=== PATIENT | male | born 1965 | race Caucasian/White ===

== ENCOUNTER → 2018-02-09 16:42 | Outpatient (CLI) | payer MEDICARE ==
[2015-03-30 12:20] VITALS: BMI 25.4
[~2018-02-09 16:42] MED LIST: BAYER CHEWABLE81 MG PO; CARAFATE1 G/10 ML PO; CELEXA10 MG; CELEXA20 MG PO; CYCLOBENZAPRINE10 MG PO; HYDROCODON-ACE1 EAC9 PO; LISINOPRIL10 MG PO; MULTIPLE VITAMI1 TA1 PO; ZANAFLEX4 MG PO; ZYLOPRIM300 MG PO
== END | disposition home or self-care (01) ==
LOC: D.CT 16:30
DX: R22.2 Localized swelling, mass and lump, trunk (principal); R06.00 Dyspnea, unspecified

== ENCOUNTER 2018-02-10 13:27 | Inpatient (IN) | payer MEDICARE ==
[~2018-02-10] VITALS: Ht 175.3 cm; Wt 68.9 kg
[~2018-02-10 13:27] MED LIST changes: -ZANAFLEX4 MG PO; -ZYLOPRIM300 MG PO
[2018-02-10] MEDS ORDERED: ZYLOPRIM300 MG PO (15:09)
[2018-02-10] MEDS ORDERED: ZANAFLEX4 MG PO (15:13)
[2018-02-10 15:14] VITALS: BP 121/86; BMI 22.5
[2018-02-10 16:46] VITALS: BP 121/86
[2018-02-10 17:27] LABS: INR 0.97 (0.85-1.17); PROTIME 12.5 SECONDS (11.6-15.0)
[2018-02-10 23:12] VITALS: BP 124/74
[2018-02-11 04:44] VITALS: BP 126/85
[2018-02-11 04:51] LABS: BASOPHILS 0.5 % (0-2); EOSINOPHILS 1.7 % (0-7); HEMOGLOBIN 15.5 g/dL (13.5-17.5); IMMATURE GRANULOCYTES 0.6 % (0-5); MCHC 33.7 g/dL (31.0-37.0); MEAN PLATELET VOLUME 9.6 fL (7.4-10.4); MONOCYTES 9.6 % (2-11); NEUTROPHILS 73.6 % (40-80); RDW 13.9 % (11.5-14.5); WBC 8.8 10x3/uL (4.8-10.8)
[2018-02-11 04:58] LABS: PLATELET COUNT 236 10x3/uL (130-400)
[2018-02-11 05:15] LABS: ALBUMIN 2.8 g/dL (3.4-5.0); ALKALINE PHOSPHATASE 83 U/L (46-116); ALT (SGPT) 29 U/L (10-68); BILIRUBIN - TOTAL 0.28 mg/dL (0.2-1.3); CALC OSMOLALITY 272 mosm/kg (275-300); CALCIUM 8.6 mg/dL (8.5-10.1); CARBON DIOXIDE 28.4 mmol/L (21.0-32.0); CHLORIDE - SERUM 101 mmol/L (98-107); CREATININE - SERUM 0.9 mg/dL (0.6-1.3); GLUCOSE 112 mg/dL (74-106); POTASSIUM - SERUM 4.4 mmol/L (3.5-5.1); PROTEIN - SERUM 6.9 g/dL (6.4-8.2); SODIUM 136 mmol/L (136-145); UREA NITROGEN 12 mg/dL (7-18); eGFR NON AFRICAN AMERICAN > 90 mL/min (90-120)
[2018-02-11 09:01] VITALS: BP 130/95
[2018-02-11 09:41] VITALS: BP 129/89
[2018-02-11 10:36] VITALS: BMI 22.4
[2018-02-11 10:49] VITALS: BP 120/84
[2018-02-11 12:19] VITALS: BP 120/95
[2018-02-11 14:36] VITALS: Ht 175.3 cm; Wt 68.9 kg
[2018-02-11 22:28] VITALS: BP 122/89
[2018-02-12 04:59] VITALS: BP 124/93
[2018-02-12 07:03] VITALS: BP 133/97
[2018-02-12 15:11] LABS: HEPATITIS C ANTIBODY >11.0 (0.0-0.9)
[2018-02-12 20:27] VITALS: BP 127/89
[2018-02-13 01:03] VITALS: BP 134/84
[2018-02-13 04:59] VITALS: BP 115/86
[2018-02-13 09:41] VITALS: BP 120/85
[2018-02-13 20:05] VITALS: BP 112/81
[2018-02-14 05:04] VITALS: BP 136/82
[2018-02-14 08:02] VITALS: BP 112/82
[2018-02-14 13:03] VITALS: BP 128/91
[2018-02-14 15:58] VITALS: BP 99/66
[2018-02-14 20:26] VITALS: BP 126/90
[2018-02-15] VITALS (13 sets, daily range): BP systolic 93–142; BP diastolic 63–108
[2018-02-15 18:16] LABS: HEMATOCRIT 44.6 % (42.0-54.0); HEMOGLOBIN 14.7 g/dL (13.5-17.5)
[2018-02-16] VITALS (7 sets, daily range): BP systolic 93–125; BP diastolic 71–98
[2018-02-16 05:36] LABS: BASOPHILS 0.1 % (0-2); EOSINOPHILS 0 % (0-7); HEMATOCRIT 45.1 % (42.0-54.0); HEMOGLOBIN 14.7 g/dL (13.5-17.5); IMMATURE GRANULOCYTES 0.4 % (0-5); LYMPHOCYTES 6.6 % (15-50); MCH 30.6 pg (26.0-34.0); MCHC 32.6 g/dL (31.0-37.0); MEAN PLATELET VOLUME 9.8 fL (7.4-10.4); MONOCYTES 9.5 % (2-11); NEUTROPHILS 83.4 % (40-80); PLATELET COUNT 264 10x3/uL (130-400); RDW 14.5 % (11.5-14.5); WBC 14.9 10x3/uL (4.8-10.8)
[2018-02-16 06:22] LABS: ALBUMIN 2.8 g/dL (3.4-5.0); ALKALINE PHOSPHATASE 80 U/L (46-116); ALT (SGPT) 77 U/L (10-68); BILIRUBIN - TOTAL 0.27 mg/dL (0.2-1.3); CALC OSMOLALITY 283 mosm/kg (275-300); CALCIUM 8.6 mg/dL (8.5-10.1); CARBON DIOXIDE 28.7 mmol/L (21.0-32.0); CHLORIDE - SERUM 102 mmol/L (98-107); CREATININE - SERUM 0.8 mg/dL (0.6-1.3); GLUCOSE 140 mg/dL (74-106); POTASSIUM - SERUM 4.6 mmol/L (3.5-5.1); SODIUM 139 mmol/L (136-145); UREA NITROGEN 24 mg/dL (7-18); eGFR NON AFRICAN AMERICAN > 90 mL/min (90-120)
[2018-02-17 05:37] LABS: BASOPHILS 0 % (0-2); EOSINOPHILS 0 % (0-7); HEMATOCRIT 42.9 % (42.0-54.0); HEMOGLOBIN 14.1 g/dL (13.5-17.5); IMMATURE GRANULOCYTES 0.2 % (0-5); LYMPHOCYTES 5.2 % (15-50); MCH 30.5 pg (26.0-34.0); MCHC 32.9 g/dL (31.0-37.0); MCV 92.7 fL (80.0-100.0); MEAN PLATELET VOLUME 9.9 fL (7.4-10.4); MONOCYTES 6.5 % (2-11); NEUTROPHILS 88.1 % (40-80); PLATELET COUNT 233 10x3/uL (130-400); RBC 4.63 10x6/uL (4.20-6.10); RDW 14.1 % (11.5-14.5); WBC 12.9 10x3/uL (4.8-10.8)
[2018-02-17 05:41] VITALS: BP 125/90
[2018-02-17 06:01] LABS: ALBUMIN 2.8 g/dL (3.4-5.0); ALKALINE PHOSPHATASE 77 U/L (46-116); ALT (SGPT) 59 U/L (10-68); BILIRUBIN - TOTAL 0.36 mg/dL (0.2-1.3); CALC OSMOLALITY 277 mosm/kg (275-300); CALCIUM 8.4 mg/dL (8.5-10.1); CARBON DIOXIDE 28.3 mmol/L (21.0-32.0); CHLORIDE - SERUM 98 mmol/L (98-107); GLUCOSE 139 mg/dL (74-106); PROTEIN - SERUM 6.8 g/dL (6.4-8.2); SODIUM 135 mmol/L (136-145); UREA NITROGEN 29 mg/dL (7-18); eGFR NON AFRICAN AMERICAN 83 mL/min (90-120)
[2018-02-17 09:20] VITALS: BP 170/70
[2018-02-17 11:07] VITALS: BP 122/83
[2018-02-17 11:19] VITALS: BP 157/102
[2018-02-17 20:00] VITALS: BP 117/78
[2018-02-18] VITALS: BP 127/84
[2018-02-18 04:00] VITALS: BP 130/81
[2018-02-18 05:58] LABS: CHLORIDE - SERUM 98 mmol/L (98-107); POTASSIUM - SERUM 4.6 mmol/L (3.5-5.1); SODIUM 132 mmol/L (136-145)
[2018-02-18 06:21] LABS: BASOPHILS 0 % (0-2); EOSINOPHILS 0 % (0-7); HEMATOCRIT 42.1 % (42.0-54.0); HEMOGLOBIN 14.1 g/dL (13.5-17.5); IMMATURE GRANULOCYTES 0.1 % (0-5); LYMPHOCYTES 4.8 % (15-50); MCH 30.7 pg (26.0-34.0); MCHC 33.5 g/dL (31.0-37.0); MCV 91.5 fL (80.0-100.0); MEAN PLATELET VOLUME 9.7 fL (7.4-10.4); MONOCYTES 4.9 % (2-11); NEUTROPHILS 90.2 % (40-80); PLATELET COUNT 212 10x3/uL (130-400); WBC 10.9 10x3/uL (4.8-10.8)
[2018-02-18 06:30] LABS: ALBUMIN 2.9 g/dL (3.4-5.0); ALKALINE PHOSPHATASE 66 U/L (46-116); ALT (SGPT) 47 U/L (10-68); BILIRUBIN - TOTAL 0.36 mg/dL (0.2-1.3); CALC OSMOLALITY 272 mosm/kg (275-300); CALCIUM 8.4 mg/dL (8.5-10.1); CREATININE - SERUM 0.9 mg/dL (0.6-1.3); GLUCOSE 120 mg/dL (74-106); PROTEIN - SERUM 6.6 g/dL (6.4-8.2); UREA NITROGEN 32 mg/dL (7-18); eGFR NON AFRICAN AMERICAN > 90 mL/min (90-120)
[2018-02-18 08:02] VITALS: BP 145/109
[2018-02-18 11:46] VITALS: BP 128/85
== END 2018-02-18 20:59 | disposition home or self-care (01) | DRG 844 ==
LOC: D.MS 13:27 → D.SDCHOLD 13:27 → D.MS 14:15 → D.SDCHOLD 02-15 11:49 → D.MS 02-15 11:51
PROVIDERS: Family Medicine; Internal Medicine Hematology & Oncology; Radiology Diagnostic Radiology
PROC: 0BBC3ZX Excision of Right Upper Lung Lobe, Percutaneous Approach, Diagnostic (ICD-10-PCS; principal; 2018-02-11 08:00)
PROC: 05HB33Z Insertion of Infusion Device into Right Basilic Vein, Percutaneous Approach (ICD-10-PCS; 2018-02-12)
PROC: B54MZZA Ultrasonography of Right Upper Extremity Veins, Guidance (ICD-10-PCS; 2018-02-12)
PROC: 0JH63XZ Insertion of Tunneled Vascular Access Device into Chest Subcutaneous Tissue and Fascia, Percutaneous Approach (ICD-10-PCS; 2018-02-14)
PROC: 02HV33Z Insertion of Infusion Device into Superior Vena Cava, Percutaneous Approach (ICD-10-PCS; 2018-02-14)
PROC: B5181ZA Fluoroscopy of Superior Vena Cava using Low Osmolar Contrast, Guidance (ICD-10-PCS; 2018-02-14)
PROC: 3E04305 Introduction of Other Antineoplastic into Central Vein, Percutaneous Approach (ICD-10-PCS; 2018-02-14)
DX: C7A.8 Other malignant neuroendocrine tumors (principal); I87.1 Compression of vein; R91.8 Other nonspecific abnormal finding of lung field; K75.9 Inflammatory liver disease, unspecified; I10 Essential (primary) hypertension; F17.200 Nicotine dependence, unspecified, uncomplicated

== ENCOUNTER → 2018-03-08 11:50 | Outpatient (CLI) | payer MEDICARE ==
[2018-02-11 14:36] VITALS: BMI 22.4
[~2018-03-08 11:50] MED LIST changes: +ZANAFLEX4 MG PO; +ZYLOPRIM300 MG PO
[2018-03-08 12:18] LABS: ALBUMIN 3.2 g/dL (3.4-5.0); ALKALINE PHOSPHATASE 152 U/L (46-116); ALT (SGPT) 21 U/L (10-68); BILIRUBIN - TOTAL 0.21 mg/dL (0.2-1.3); CALC OSMOLALITY 284 mosm/kg (275-300); CALCIUM 8.8 mg/dL (8.5-10.1); CARBON DIOXIDE 29.5 mmol/L (21.0-32.0); CHLORIDE - SERUM 100 mmol/L (98-107); CREATININE - SERUM 0.8 mg/dL (0.6-1.3); GLUCOSE 257 mg/dL (74-106); POTASSIUM - SERUM 4.2 mmol/L (3.5-5.1); PROTEIN - SERUM 6.7 g/dL (6.4-8.2); SODIUM 137 mmol/L (136-145); UREA NITROGEN 19 mg/dL (7-18); eGFR NON AFRICAN AMERICAN > 90 mL/min (90-120)
== END | disposition home or self-care (01) ==
LOC: D.LABREF 11:50
PROVIDERS: Internal Medicine Hematology & Oncology
DX: R91.8 Other nonspecific abnormal finding of lung field (principal); Z85.118 Personal history of other malignant neoplasm of bronchus and lung